=== PATIENT | female | born 1990 | race African-American/Black ===

== ENCOUNTER 2017-07-06 01:37 | Emergency (ER) | payer OTHER ==
[~2017-07-06] VITALS: Ht 160 cm; Wt 108.9 kg
[2017-07-06 01:45] VITALS: BP 139/70
[2017-07-06] MEDS ORDERED: ZOFRAN4 MG PO (01:54)
== END 2017-07-06 02:04 | disposition home or self-care (01) ==
LOC: M.ERS 01:37
DX: S09.8XXA Other specified injuries of head, initial encounter (principal); W22.8XXA Striking against or struck by other objects, initial encounter; Y93.89 Activity, other specified; Y92.89 Other specified places as the place of occurrence of the external cause; Y99.8 Other external cause status